=== PATIENT | male | born 1990 | race Caucasian/White ===

== ENCOUNTER 2017-10-12 20:03 | Emergency (ER) | payer BC, OTHER ==
[~2017-10-12] VITALS: Ht 188 cm; Wt 73.7 kg
[2017-10-13 01:05] VITALS: BP 137/107
[2017-10-13] MEDS ORDERED: LIDOcaine Viscous 15ml cup PO ONE (01:40)
[2017-10-13] MEDS ORDERED: mag hydrox/Alum hydrox/simeth 30ml oral suspension PO ONE (01:40)
== END 2017-10-13 02:55 | disposition home or self-care (01) ==
LOC: ER 20:04
DX: R49.0 Dysphonia (principal); J02.9 Acute pharyngitis, unspecified
CPT/HCPCS: 99283